=== PATIENT | female | born 1985 | race Caucasian/White ===

== ENCOUNTER 2018-08-24 16:18 | Emergency (ER) | payer OTHER ==
[2018-08-24 17:43] VITALS: BP 119/70; PULSE 51; RESP 18; TEMP 98.3
[2018-08-24] MEDS ORDERED: KETOROLAC 30 MG/ML 1 ML VIAL IM STA (18:46)
[2018-08-24] MEDS ORDERED: AMOXIC-POT CLAV 875-125MG 1 EACH TAB PO STA (18:46)
--- NOTE | 2018-08-24 18:55 | ED ---
ENT HPI - General Chief complaint: Dental/Oral Stated complaint: facial swelling Source: patient Mode of arrival: ambulatory Limitations: no limitations - History of Present Illness Initial comments: 33-year-old female with dental pain in tooth #1 and 16. No nausea, vomiting, fever. No discharge . Minimal swelling. Patient given dental referral. - Related Data Previous Rx's Medication Instructions Recorded Acetaminophen-Codeine 300-30mg 1 tab PO Q4H PRN #12 tablet 08/24/18 [Tylenol #3] Amoxicillin/Potassium Clav 1 tab PO Q12HR #20 tab 08/24/18 [Augmentin 875-125 Tablet] Allergies Allergy/AdvReac Type Severity Reaction Status Date / Time No Known Allergies Allergy Verified 08/24/18 17:43 Review of Systems ROS Statement: Those systems with pertinent positive or pertinent negative responses have been documented in the HPI. ROS Other: All systems not noted in ROS Statement are negative. Past Medical History Additional Past Medical History / Comment(s): "blood infection" History of Any Multi-Drug Resistant Organisms: None Reported Past Surgical History: Section Past Psychological History: No Psychological Hx Reported Smoking Status: Current every day smoker Past Alcohol Use History: Occasional Past Drug Use History: Marijuana General Exam Limitations: no limitations Course Vital Signs 08/24/18 17:40 Temperature 98.3 F Pulse Rate 51 L Respiratory 18 Rate Blood Pressure 119/70 O2 Sat by Pulse 98 Oximetry Disposition Clinical Impression: Pain, dental Disposition: HOME SELF-CARE Condition: Stable Instructions (If sedation given, give patient instructions): Toothache (ED) Additional Instructions: Please take prescribed medication as directed. Please follow with a dentist. Return to emergency department if symptoms worsen. Prescriptions: Amoxicillin/Potassium Clav [Augmentin 875-125 Tablet] 1 tab PO Q12HR #20 tab Acetaminophen-Codeine 300-30mg [Tylenol #3] 1 tab PO Q4H PRN #12 tablet PRN Reason: pain Is patient prescribed a controlled substance at d/c from ED?: Yes If prescribed controlled substance>3 days was MAPS reviewed?: Prescribed <3 Days Referrals: None,Stated [Primary Care Provider] - 1-2 days Time of Disposition: 18:49
== END 2018-08-24 19:19 | disposition home or self-care (01) ==
LOC: EC 16:18
DX: K08.89 Other specified disorders of teeth and supporting structures (principal); F17.200 Nicotine dependence, unspecified, uncomplicated
CPT/HCPCS: 99283; 96372; J1885

== ENCOUNTER 2018-10-21 13:40 | Observation (INO) | payer OTHER ==
[2018-10-21] MEDS ORDERED: SODIUM CHLORIDE 0.9% 1,000 ML IV STA (14:51)
[2018-10-21 15:14] LABS: Appearance,Urine Clear (Clear); Bilirubin,Urine Negative (Negative); Blood,Urine Negative (Negative); Color,Urine Light Yellow; Glucose,Urine (UA) Negative (Negative); Ketones,Urine Negative (Negative); Leukocyte Esterase,Urine Negative (Negative); Nitrite,Urine Negative (Negative); Protein,Urine Negative (Negative); Specific Gravity,Urine 1.009 (1.001-1.035); Urobilinogen,Urine <2.0 mg/dL (<2.0)
[2018-10-21 15:24] LABS: Basophils # (A) 0.1 k/uL (0-0.2); Basophils % (A) 1 %; Eosinophils # (A) 0.6 k/uL (0-0.7); Eosinophils % (A) 5 %; HCT 42.3 % (34.0-46.0); HGB 14.1 gm/dL (11.4-16.0); Lymphocytes # (A) 3.6 k/uL (1.0-4.8); Lymphocytes % (A) 26 %; MCH 30.4 pg (25.0-35.0); MCHC 33.2 g/dL (31.0-37.0); MCV 91.5 fL (80.0-100.0); Mean Platelet Volume 7.4; Monocytes # (A) 0.5 k/uL (0-1.0); Monocytes % (A) 3 %; Neutrophils % (A) 65 %; Platelet Count 248 k/uL (150-450); RBC 4.62 m/uL (3.80-5.40); RDW 15.5 % (11.5-15.5)
[2018-10-21 15:33] LABS: ALT 19 U/L (9-52); AST 19 U/L (14-36); African American GFR (CKD) >90 (>60 ml/min/1.73 sqM); Albumin 4.2 g/dL (3.5-5.0); Alkaline Phosphatase 33 U/L (38-126); Anion Gap 7 mmol/L; Blood Urea Nitrogen 15 mg/dL (7-17); Calcium 9.2 mg/dL (8.4-10.2); Carbon Dioxide 24 mmol/L (22-30); Chloride 106 mmol/L (98-107); Glucose 104 mg/dL (74-99); Potassium 3.9 mmol/L (3.5-5.1); Sodium 137 mmol/L (137-145); Total Bilirubin 0.3 mg/dL (0.2-1.3); Total Protein 6.6 g/dL (6.3-8.2)
[2018-10-21 15:36] LABS: INR 0.9 (<1.2)
--- NOTE | 2018-10-21 15:40 | XR ---
EXAMINATION TYPE: XR chest 2V DATE OF EXAM: 10/21/2018 COMPARISON: NONE HISTORY: Chest pain and dizziness TECHNIQUE: Frontal and lateral views of the chest are obtained. FINDINGS: There is no focal air space opacity, pleural effusion, or pneumothorax seen. The cardiac silhouette size is within normal limits. The osseous structures are intact. There are overlying car diac leads. IMPRESSION: No acute cardiopulmonary process.
--- NOTE | 2018-10-21 16:03 | ED ---
General Adult HPI <Kurtis Artis - Last Filed: 10/21/18 16:22> - General Source: patient, RN notes reviewed Mode of arrival: wheelchair Limitations: no limitations <David Licea - Last Filed: 10/21/18 16:40> - General Chief complaint: Dizziness Stated complaint: Chest tightness & low heart rate Time Seen by Provider: 10/21/18 14:42 - History of Present Illness Initial comments: 33-year-old female with a past medical history of bradycardia, septicemia presents to the emergency department for a chief complaint of a headedness and chest pressure. Patient states that she was originally diagnosed with bradycardia in july in [place]. Patient states that she was supposed to have a pacemaker implanted but she could not do this because of insurance problems. States she moved here about a month ago and has been asymptomatic since that time. States that 2 days ago she started to have chest pressure and lightheadedness on and off. States that she checked her pulse today and it was 39. Patient has no other complaints at this time including shortness of breath, chest pain, abdominal pain, nausea or vomiting, headache, or visual changes. (David Licea) - Related Data Home Medications Medication Instructions Recorded Confirmed No Known Home Medications 10/21/18 10/21/18 Allergies Allergy/AdvReac Type Severity Reaction Status Date / Time morphine AdvReac Nausea & Verified 10/21/18 16:38 Vomiting Review of Systems ROS Other: All systems not noted in ROS Statement are negative. <Kurtis Artis - Last Filed: 10/21/18 16:22> ROS Other: All systems not noted in ROS Statement are negative. <David Licea - Last Filed: 10/21/18 16:40> ROS Statement: Those systems with pertinent positive or pertinent negative responses have been documented in the HPI. Past Medical History Additional Past Medical History / Comment(s): "blood infection", bradycardia History of Any Multi-Drug Resistant Organisms: None Reported Past Surgical History: Section Past Psychological History: No Psychological Hx Reported Smoking Status: Current every day smoker Past Alcohol Use History: Occasional Past Drug Use History: Marijuana <David Licea - Last Filed: 10/21/18 16:40> General Exam Limitations: no limitations General appearance: alert, in no apparent distress Head exam: Present: atraumatic, normocephalic, normal inspection Eye exam: Present: normal appearance, PERRL, EOMI. Absent: scleral icterus, conjunctival injection, periorbital swelling ENT exam: Present: normal exam, mucous membranes moist Neck exam: Present: normal inspection, full ROM. Absent: tenderness, meningismus, lymphadenopathy Respiratory exam: Present: normal lung sounds bilaterally. Absent: respiratory distress, wheezes, rales, rhonchi, stridor Cardiovascular Exam: Present: regular rate, normal rhythm, normal heart sounds. Absent: systolic murmur, diastolic murmur, rubs, gallop, clicks GI/Abdominal exam: Present: soft, normal bowel sounds. Absent: distended, tenderness, guarding, rebound, rigid Neurological exam: Present: alert, oriented X3, CN II-XII intact Psychiatric exam: Present: normal affect, normal mood <David Licea P - Last Filed: 10/21/18 16:40> Course Vital Signs 10/21/18 10/21/18 10/21/18 13:43 14:32 15:23 Temperature 97.5 F L Pulse Rate 55 L 49 L 46 L Respiratory 16 16 Rate Blood Pressure 127/72 111/85 O2 Sat by Pulse 98 99 Oximetry EKG Findings - EKG Comments: EKG Findings:: Sinus bradycardia, ventricular rate 44, DE interval 152, QTC 395 <David Licea P - Last Filed: 10/21/18 16:40> Medical Decision Making - Lab Data Result diagrams: 10/21/18 15:10 10/21/18 15:10 <Kurtis Artis - Last Filed: 10/21/18 16:22> - Lab Data Result diagrams: 10/21/18 15:10 10/21/18 15:10 <David Licea - Last Filed: 10/21/18 16:40> - Medical Decision Making Chart reviewed. Case was discussed with practitioner David. Case also discussed with Dr. Rice SP, who will admit covering for Dr. Arechiga. Cardiology will be consulted. (Kurtis Artis) 33-year-old female with a past medical history bradycardia, septicemia presents for a chief complaint of lightheadedness and chest pressure. Patient was diagnosed with bradycardia in July and . She was supposed to have a pacemaker implanted but was unable to do so. States that for the past 2 days she has had chest pressure and shortness of breath. States that she had a heart rate of 39 today when she checked her pulse. Patient presents with a ventricular rate of 44 on EKG. She has generally been in the low 40s when I review the threat monitoring analyst which was ordered to detect any dysrhythmias. CBC does show a mild leukocytosis, likely reactive in nature. CMP is unremarkable. Urine negative. Chest x-ray shows no acute cardiopulmonary process. Dr. Artis discussed this case with Dr. Rice who answered the call for Dr. Arechiga. Patient will be admitted to Dr. Arechiga with cardiology consultation. (David Licea) - Lab Data Lab Results 10/21/18 10/21/18 10/21/18 Range/Units 15:02 15:10 15:10 WBC 14.0 H (3.8-10.6) k/uL RBC 4.62 (3.80-5.40) m/uL Hgb 14.1 (11.4-16.0) gm/dL Hct 42.3 (34.0-46.0) % MCV 91.5 (80.0-100.0) fL MCH 30.4 (25.0-35.0) pg MCHC 33.2 (31.0-37.0) g/dL RDW 15.5 (11.5-15.5) % Plt Count 248 (150-450) k/uL Neutrophils % 65 % Lymphocytes % 26 % Monocytes % 3 % Eosinophils % 5 % Basophils % 1 % Neutrophils # 9.0 H (1.3-7.7) k/uL Lymphocytes # 3.6 (1.0-4.8) k/uL Monocytes # 0.5 (0-1.0) k/uL Eosinophils # 0.6 (0-0.7) k/uL Basophils # 0.1 (0-0.2) k/uL PT (9.0-12.0) sec INR (<1.2) Sodium 137 (137-145) mmol/L Potassium 3.9 (3.5-5.1) mmol/L Chloride 106 (98-107) mmol/L Carbon Dioxide 24 (22-30) mmol/L Anion Gap 7 mmol/L BUN 15 (7-17) mg/dL Creatinine 0.62 (0.52-1.04) mg/dL Est GFR (CKD-EPI)AfAm >90 (>60 ml/min/1.73 sqM) Est GFR (CKD-EPI)NonAf >90 (>60 ml/min/1.73 sqM) Glucose 104 H (74-99) mg/dL Calcium 9.2 (8.4-10.2) mg/dL Total Bilirubin 0.3 (0.2-1.3) mg/dL AST 19 (14-36) U/L ALT 19 (9-52) U/L Alkaline Phosphatase 33 L (38-126) U/L Troponin I (0.000-0.034) ng/mL Total Protein 6.6 (6.3-8.2) g/dL Albumin 4.2 (3.5-5.0) g/dL Urine Color Light Yellow Urine Appearance Clear (Clear) Urine pH 6.0 (5.0-8.0) Ur Specific [place] 1.009 (1.001-1.035) Urine Protein Negative (Negative) Urine Glucose (UA) Negative (Negative) Urine Ketones Negative (Negative) Urine Blood Negative (Negative) Urine Nitrite Negative (Negative) Urine Bilirubin Negative (Negative) Urine Urobilinogen <2.0 (<2.0) mg/dL Ur Leukocyte Esterase Negative (Negative) 10/21/18 10/21/18 Range/Units 15:10 15:10 WBC (3.8-10.6) k/uL RBC (3.80-5.40) m/uL Hgb (11.4-16.0) gm/dL Hct (34.0-46.0) % MCV (80.0-100.0) fL MCH (25.0-35.0) pg MCHC (31.0-37.0) g/dL RDW (11.5-15.5) % Plt Count (150-450) k/uL Neutrophils % % Lymphocytes % % Monocytes % % Eosinophils % % Basophils % % Neutrophils # (1.3-7.7) k/uL Lymphocytes # (1.0-4.8) k/uL Monocytes # (0-1.0) k/uL Eosinophils # (0-0.7) k/uL Basophils # (0-0.2) k/uL PT 10.0 (9.0-12.0) sec INR 0.9 (<1.2) Sodium (137-145) mmol/L Potassium (3.5-5.1) mmol/L Chloride (98-107) mmol/L Carbon Dioxide (22-30) mmol/L Anion Gap mmol/L BUN (7-17) mg/dL Creatinine (0.52-1.04) mg/dL Est GFR (CKD-EPI)AfAm (>60 ml/min/1.73 sqM) Est GFR (CKD-EPI)NonAf (>60 ml/min/1.73 sqM) Glucose (74-99) mg/dL Calcium (8.4-10.2) mg/dL Total Bilirubin (0.2-1.3) mg/dL AST (14-36) U/L ALT (9-52) U/L Alkaline Phosphatase (38-126) U/L Troponin I <0.012 (0.000-0.034) ng/mL Total Protein (6.3-8.2) g/dL Albumin (3.5-5.0) g/dL Urine Color Urine Appearance (Clear) Urine pH (5.0-8.0) Ur Specific [place] (1.001-1.035) Urine Protein (Negative) Urine Glucose (UA) (Negative) Urine Ketones (Negative) Urine Blood (Negative) Urine Nitrite (Negative) Urine Bilirubin (Negative) Urine Urobilinogen (<2.0) mg/dL Ur Leukocyte Esterase (Negative) Disposition <Kurtis Artis - Last Filed: 10/21/18 16:22> Is patient prescribed a controlled substance at d/c from ED?: No Time of Disposition: 16:40 <David Licea - Last Filed: 10/21/18 16:40> Clinical Impression: Bradycardia, Chest pressure Disposition: ADMITTED IP TO THIS HOSP Condition: Fair Referrals: Hermelindo Arechiga MD [Primary Care Provider] - 1-2 days
[2018-10-21 17:59] VITALS: BMI 23.0
[2018-10-21] MEDS: valACYclovir 500 MG TAB PO SCH (18:37)
[2018-10-21] MEDS: HEPARIN SODIUM,PORCINE 5,000 UNIT/ML 1 ML VIAL SQ SCH (21:19)
--- NOTE | 2018-10-21 21:36 | HP ---
HISTORY AND PHYSICAL DATE OF SERVICE: 10/21/2018 HISTORY OF PRESENT ILLNESS: Patient is a 33-year-old female with a history of bacteremia after having a severe tooth infection in May of this year in [place]. Evidently, the patient states that the infection entered her bloodstream and affected her heart at which time a pacemaker was found to be necessary. However, patient did not have any insurance at the time and was unable to have the pacemaker placed. The patient was treated on a full course of IV antibiotics for the bacteremia and has since moved to [place]. About a week ago the patient stated that she started to have symptoms of worsening shortness of breath, chest tightness, and dizziness. The patient checked her heart rate and found that it was slow and thought that her blood pressure might be low. The patient's fiancee insisted the patient come to the emergency room for further evaluation and treatment and was found to be bradycardic and has been admitted for a cardiac evaluation. PAST MEDICAL HISTORY: Positive for bacteremia in May of this year resulting in bradycardia. The patient also with a history of depression, bipolar and schizophrenia, but is not on any medications for those or did not provide a list of medications. PAST SURGICAL HISTORY: Significant for a . ALLERGIES: Include MORPHINE which causes nausea and vomiting. Again, medications are not provided. SOCIAL HISTORY: The patient is a smoker and has smoked a pack a day for approximately 20 years. Drinks alcohol only on occasion. Does smoke marijuana weekly to help with the psychiatric symptoms. 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 FAMILY HISTORY: Patient never knew her Father and does not speak to her Mother. Patient talked to her Grandmother since admission and was told that her Mother has valvular heart disease and irregular heart beat. REVIEW OF SYSTEMS: General is negative for any fever or chills. Weight is stable. The patient does verbalize being hungry all the time with good appetite, although has been having diarrhea for over a week. HEENT: Negative for headaches. Positive for dizziness. Denies any acute visual changes. Does have difficulty hearing. Denies any seasonal allergies or rhinitis or nose bleeds. Denies any sore throat or difficulty swallowing. RESPIRATORY: Positive for shortness of breath with cough productive for occasional dark colored sputum. Denies hemoptysis. CARDIOVASCULAR: Positive for chest tightness. GI: Positive for abdominal cramping. No nausea or vomiting. The patient has had liquid yellow diarrhea for approximately a week. : Negative for dysuria or hematuria. Patient does complain of an outbreak of herpes type 2 currently and is not on any medication. ENDOCRINE: Negative for diabetes mellitus or thyroid disease. MUSCULOSKELETAL: Positive for chronic back pain. Patient does have several herniated discs from an injury at a job in [place]. NEURO: Negative for any history of seizures, numbness or tingling in the extremities. PSYCHIATRIC: Positive for depression, bipolar disorder and schizophrenia. PHYSICAL EXAM: GENERAL: A pleasant 33-year-old female who is seen lying in bed, awake, alert. VITAL SIGNS: Temp is 97.5, heart rate 43, respiratory rate 16, blood pressure 109/65, O2 sats 100% on room air. HEENT: Head is normocephalic, atraumatic. Pupils equal, round, react to light. Ears and nose, no discharge is noted. Mouth was moist mucous membranes. No pharyngeal erythema. Neck is supple. Trachea is midline. No lymphadenopathy. LUNGS: Clear. No rales or wheezes. HEART: S1, S2 are heard. Bradycardic, regular. ABDOMEN: Soft. Bowel sounds are heard. EXTREMITIES: With no edema. NEUROLOGIC: Patient is awake and alert. LABS: White count is 14.0, hemoglobin 14.1, hematocrit 42.3 with 248,000 platelets. PT is 10, INR 0.9. Sodium is 137, potassium is 3.9, chloride is 106, CO2 is 24, anion gap is 7, BUN is 15, creatinine 0.62, glucose 104, calcium 9.2, total bilirubin 0.3, AST 19, ALT 19, alkaline phosphatase 33. Troponins less than 0.012. Total protein 6.6, albumin 4.2. Urinalysis negative for leuk esterase or nitrites. IMPRESSION: 1. Symptomatic bradycardia with chest tightness, shortness of breath and dizziness. Consult Cardiology and monitor on telemetry. 2.Leukocytosis. 3. Diarrhea. We will check stool cultures and consult GI and Infectious Disease. 4. Herpes simplex type 2. Add Valtrex 500 mg p.o. daily and consult ID. 5. Nicotine dependence. The patient counseled on quitting smoking and was highly recommended. 6. History of bacteremia. It may be necessary to obtain records from the hospital the patient was admitted to in [place]. Again, Cardiology is on consult. Will add GI and DVT prophylaxis. The patient will be maintained on a regular diet and will follow patient closely, making further changes as necessary. MMODL / IJN: [id number] / HEIDI
[2018-10-22 03:32] LABS: Cholesterol 263 mg/dL (<200); HDL Cholesterol 47 mg/dL (40-60); LDL Cholesterol,Calculated 142 mg/dL (0-99); Triglycerides 372 mg/dL (<150)
[2018-10-22] MEDS ORDERED: PANTOPRAZOLE 40 MG TABLET PO SCH (07:30)
[2018-10-22] MEDS ORDERED: ASPIRIN 325 MG TAB PO SCH (09:00)
[2018-10-22 09:13] VITALS: RESP 16
--- NOTE | 2018-10-22 10:07 | P.CONS ---
History of Present Illness - Reason for Consult Consult date: 10/22/18 Diarrhea Requesting physician: Hermelindo Arechiga - Chief Complaint Shortness of breath - History of Present Illness 33-year-old female with a history of severe tooth infection May 2018 in [place] resulted in bacteremia with subsequent effects on her heart requiring pacemaker however patient's insurance at that time was unable to assist with pacemaker placement. She presents with 1 week shortness of breath chest tightness and nonbloody diarrhea. Patient's heart rate was low on admission 43- 47. Patient thinks she might eaten some greasy chicken prior to the onset of h er diarrhea. Consult requested for diarrhea. White count 14. Hemoglobin 14.1. INR 0.9. BUN 15. Creatinine 0.6. Afebrile. Presently no diarrhea or abdominal pain. Diarrhea stopped yesterday. Denies hematemesis hematochezia or melena. No history of underlying bowel disorders. Review of Systems Constitutional: Denies fever, chills, sweats, weight gain, or loss. HEENT: Negative for migraines, blurred vision or loss, earaches, drainage, tinnitus, oral mucosal lesions, dysphagia, or odynophagia. CARDIAC: Admitted with chest tightness denies, arrhythmias, or palpitation. RESPIRATORY: Admitted with shortness of breath denies hemoptysis, cough, or sputum production. GI: See HPI for pertinent findings. : Negative for hematuria, urgency, frequency, polyuria, or dysuria. GYNc: Denies possibility of . Negative vaginal discharge. MUSCULOSKELETAL: Negative for muscle aches, swelling, arthritis, and arthralgias. NEUROLOGIC: Negative for stroke or TIA. ENDOCRINE: Negative for thyroid problems. SKIN: Negative for rash or itching. PSYCHIATRIC: Negative history for depression and anxiety Past Medical History Additional Past Medical History / Comment(s): "blood infection" from toothache that stated went ot heart, bradycardia History of Any Multi-Drug Resistant Organisms: None Reported Past Surgical History: Section Past Anesthesia/Blood Transfusion Reactions: No Reported Reaction Past Psychological History: ADD/ADHD, Anxiety, Bipolar, Depression, Schizophrenia Smoking Status: Current every day smoker Past Alcohol Use History: Occasional Past Drug Use History: Marijuana - Past Family History Mother Family Medical History: Cancer Additional Family Medical History / Comment(s): stents placed in leg, throat cancer Medications and Allergies Home Medications Medication Instructions Recorded Confirmed Type No Known Home Medications 10/21/18 10/21/18 History Allergies Allergy/AdvReac Type Severity Reaction Status Date / Time morphine AdvReac Nausea & Verified 10/21/18 16:38 Vomiting Physical Exam Vitals: Vital Signs Temp Pulse Pulse Pulse Pulse Pulse Resp 10/22/18 08:00 97.6 F 42 L 60 41 L 16 10/22/18 03:38 98.3 F 44 L 18 10/22/18 00:00 98.3 F 43 L 18 10/21/18 20:00 47 L 10/21/18 19:38 98.2 F 44 L 18 10/21/18 17:43 98.0 F 43 L 16 10/21/18 17:05 54 L 16 10/21/18 15:23 46 L 16 10/21/18 14:32 49 L 10/21/18 13:43 97.5 F L 55 L 16 BP BP BP BP BP Pulse Ox 10/22/18 08:00 120/59 110/75 108/49 99 10/22/18 03:38 123/68 99 10/22/18 00:00 89/45 95 10/21/18 20:00 10/21/18 19:38 97/47 100 10/21/18 17:43 109/65 100 10/21/18 17:05 116/75 99 10/21/18 15:23 111/85 99 10/21/18 14:32 10/21/18 13:43 127/72 98 Intake and Output 10/21/18 10/22/18 10/22/18 22:59 06:59 14:59 Intake Total 240 Balance 240 Intake: Oral 240 Other: Voiding Method Toilet Toilet # Voids 1 General appearance: The patient is alert, oriented, in no acute distress. HET: Head is normocephalic and atraumatic. Pupils are equal and reactive. Oropharynx is clear without lesions. Neck: Supple without lymphadenopathy. Trachea midline. Heart: S1 S2. Regular rate and rhythm. Lungs: No crackles or wheezes are heard. Abdomen: Soft, nontender, nondistended with bowel sounds. No peritoneal signs. No palpable organomegaly or masses. Extremities: Normal skin color and turgor. No cyanosis, rash, ulceration, clubbing, or edema. Radial and pedal pulses are 2/4 bilaterally. Neurological: No focal deficits. Strength and sensation are grossly intact. Results CBC & Chem 7: 10/21/18 15:10 10/21/18 15:10 Labs: Abnormal Lab Results - Last 24 Hours (Table) 10/21/18 10/21/18 10/22/18 Range/Units 15:10 15:10 03:05 WBC 14.0 H (3.8-10.6) k/uL Neutrophils # 9.0 H (1.3-7.7) k/uL Glucose 104 H (74-99) mg/dL Alkaline Phosphatase 33 L (38-126) U/L Triglycerides 372 H (<150) mg/dL Cholesterol 263 H (<200) mg/dL LDL Cholesterol, Calc 142 H (0-99) mg/dL Assessment and Plan (1) Diarrhea Narrative/Plan: 33-year-old female with a history of severe tooth infection May 2018 [facility] resulting in bacteremia and bradycardia with recommendations of pacemaker implantation however insurance issues would not support implantation of pacemaker presents with a symptomatically bradycardic cardia with symptoms of shortness of breath and chest tightness for a week with nonbloody diarrhea. Diarrhea has ceased presently without abdominal pain or abdominal complaints. Possible acute self-limiting infectious gastroenteritis colitis. Current Visit: Yes Status: Acute Code(s): R19.7 - DIARRHEA, UNSPECIFIED SNOMED Code(s): 85223943 (2) Symptomatic bradycardia Current Visit: Yes Status: Acute Code(s): R00.1 - BRADYCARDIA, UNSPECIFIED SNOMED Code(s): 26264780 Plan: 1. Diarrhea has stopped therefore no further recommendations at this time. If patient has recurrence of diarrhea we'll send stool studies including Clostridium difficile testing. Continue with supportive measures. We'll follow on an as-needed basis. Discharge per medicine and store sales consultant staff. Thank you for this kind referral and the opportunity to participate in the care of your patient. This consultation was discussed with Dr. Carrasco. The impression and plan of care have been directed as dictated.
--- NOTE | 2018-10-22 10:41 | P.CRDCN ---
History of Present Illness History of present illness: This is a pleasant 33-year-old female past medical history significant for chronic nicotine dependence, schizophrenia, depression, bipolar, anxiety and ADD. We have been asked to see her in consultation secondary to bradycardia and chest pain. She states for the previous couple of days she has noticed acute onset of shortness of breath at rest associated with a tight squeezing type pain. She states it feels extremity is gripping her underneath her arms and squeezing her chest together into the middle. She also has some intermittent dizziness at times. Not associated with exertion or activity. She recently moved here from [place]. While in [place] in May 2017 she was treated in the hospital for 2-weeks with IV antibiotics for a tooth infection that went septic. She states she was told there was a possibility the infection had spread to her heart and she would need a pacemaker. However, due to lack of insurance this was not done. She is seen and examined resting comfortably in bed in no acute distress. She does have an episode of pleuritic pain when asked to take some deep breaths for my exam. Denies active dizziness. EKG reveals sinus bradycardia heart rate 44. Telemetry tracings this will show consistent sinus bradycardia. Chest x-ray is negative for an acute cardiopulmonary process. Laboratory data reviewed, WBC 14, hemoglobin 14.1, platelets 248, sodium 137, potassium 3.9, creatinine 0.62, cardiac enzymes negative 3, LDL 142, HDL 47, triglycerides 372 and TSH 1.06. She currently takes no daily cardiac medications. At the time of my exam: CONSTITUTIONAL: Denies fever. Denies chills. EYES: Denies blurred vision. Denies vision changes. Denies eye pain. EARS, NOSE, MOUTH & THROAT: Denies headache. Denies sore throat. Denies ear pain. CARDIOVASCULAR: Complains of pleuritic chest pain. Denies shortness of breath. Denies orthopnea. Denies PND. Denies palpitations. RESPIRATORY: Denies cough. GASTROINTESTINAL: Denies abdominal pain. Denies diarrhea. Denies constipation. Denies nausea. Denies vomiting. MUSCULOSKELETAL: Denies myalgias. INTEGUMENTARY: Denies pruitis. Denies rash. NEUROLOGIC: Denies numbness. Denies tingling. Denies weakness. PSYCHIATRIC: Denies anxiety. Denies depression. ENDOCRINE: Denies fatigue. Denies weight change. Denies polydipsia. Denies polyurina. GENITOURINARY: Denies burning, hematuria or urgency with micturation. HEMATOLOGIC: Denies history of anemia. Denies bleeding. Blood pressure 108/49 heart rate between 40 and 60 afebrile maintaining oxygen saturation on room air GENERAL: This is a 33-year-old female in no apparent distress at the time of my examination. HEENT: Head is atraumatic, normocephalic. Pupils are equal, round. Sclerae anicteric. Conjunctivae are clear. Mucous membranes of the mouth are moist. Neck is supple. There is no jugular venous distention. No carotid bruit is heard. LUNGS: Clear to auscultation no wheezes, rales or rhonchi. Mild pleuritic chest pain with deep inspiration No chest wall tenderness is noted on palpation or with deep breathing. HEART: Regular rate and rhythm without murmurs, rubs or gallops. S1 and S2 heard. ABDOMEN: Soft, nontender. Bowel sounds are heard. No organomegaly noted. EXTREMITIES: No evidence of peripheral edema and no calf tenderness noted. VASCULAR: Radial and dorsalis pedis pulses palpated, no evidence of clubbing. NEUROLOGIC: Patient is awake, alert and oriented x3. ASSESSMENT Pleuritic chest pain with shortness of breath, atypical for angina. An acute coronary event has been ruled out. Asymptomatic sinus bradycardia Leukocytosis Chronic nicotine dependence PLAN An acute coronary event has been ruled out. Check d-dimer. Orthostatic vital signs requested and reviewed, no evidence of orthostatic hypotension. Obtain records from admission in May from [facility]. Obtain 2D echocardiogram and doppler study to assess cardiac structure and function. Perform stress echocardiogram to assess for stress induced ischemia. Thank you kindly for this consultation. Nurse Practitioner note has been reviewed, I agree with a documented findings and plan of care. Patient was seen and examined. Past Medical History Additional Past Medical History / Comment(s): "blood infection" from toothache that stated went ot heart, bradycardia History of Any Multi-Drug Resistant Organisms: None Reported Past Surgical History: Section Past Anesthesia/Blood Transfusion Reactions: No Reported Reaction Past Psychological History: ADD/ADHD, Anxiety, Bipolar, Depression, Schizophrenia Smoking Status: Current every day smoker Past Alcohol Use History: Occasional Past Drug Use History: Marijuana - Past Family History Mother Family Medical History: Cancer Additional Family Medical History / Comment(s): stents placed in leg, throat cancer Medications and Allergies Home Medications Medication Instructions Recorded Confirmed Type No Known Home Medications 10/21/18 10/21/18 History Allergies Allergy/AdvReac Type Severity Reaction Status Date / Time morphine AdvReac Nausea & Verified 10/21/18 16:38 Vomiting Physical Exam Vitals: Vital Signs Temp Pulse Pulse Resp BP BP Pulse Ox 10/22/18 03:38 98.3 F 44 L 18 123/68 99 10/22/18 00:00 98.3 F 43 L 18 89/45 95 10/21/18 20:00 47 L 10/21/18 19:38 98.2 F 44 L 18 97/47 100 10/21/18 17:43 98.0 F 43 L 16 109/65 100 10/21/18 17:05 54 L 16 116/75 99 10/21/18 15:23 46 L 16 111/85 99 10/21/18 14:32 49 L 10/21/18 13:43 97.5 F L 55 L 16 127/72 98 Intake and Output 10/21/18 10/22/18 10/22/18 22:59 06:59 14:59 Intake Total 240 Balance 240 Intake: Oral 240 Other: Voiding Method Toilet # Voids 1 Results 10/21/18 15:10 10/21/18 15:10 Cardiac Enzymes 10/21/18 10/21/18 10/21/18 Range/Units 15:10 15:10 21:01 AST 19 (14-36) U/L Troponin I <0.012 <0.012 (0.000-0.034) ng/mL 10/22/18 Range/Units 03:05 AST (14-36) U/L Troponin I <0.012 (0.000-0.034) ng/mL Coagulation 10/21/18 Range/Units 15:10 PT 10.0 (9.0-12.0) sec Lipids 10/22/18 Range/Units 03:05 Triglycerides 372 H (<150) mg/dL Cholesterol 263 H (<200) mg/dL HDL Cholesterol 47 (40-60) mg/dL CBC 10/21/18 Range/Units 15:10 WBC 14.0 H (3.8-10.6) k/uL RBC 4.62 (3.80-5.40) m/uL Hgb 14.1 (11.4-16.0) gm/dL Hct 42.3 (34.0-46.0) % Plt Count 248 (150-450) k/uL Comprehensive Metabolic Panel 10/21/18 Range/Units 15:10 Sodium 137 (137-145) mmol/L Potassium 3.9 (3.5-5.1) mmol/L Chloride 106 (98-107) mmol/L Carbon Dioxide 24 (22-30) mmol/L BUN 15 (7-17) mg/dL Creatinine 0.62 (0.52-1.04) mg/dL Glucose 104 H (74-99) mg/dL Calcium 9.2 (8.4-10.2) mg/dL AST 19 (14-36) U/L ALT 19 (9-52) U/L Alkaline Phosphatase 33 L (38-126) U/L Total Protein 6.6 (6.3-8.2) g/dL Albumin 4.2 (3.5-5.0) g/dL Current Medications Generic Name Dose Route Start Last Admin Trade Name Freq PRN Reason Stop Dose Admin Aspirin 325 mg 10/22/18 09:00 Aspirin PO DAILY [facility] Heparin Sodium (Porcine) 5,000 unit 10/21/18 21:00 10/21/18 21:19 Heparin SQ 5,000 unit Q12HR CHRISTOPHER Administration Pantoprazole Sodium 40 mg 10/22/18 07:30 Protonix PO AC-BRKFST [facility] Valacyclovir HCl 500 mg 10/21/18 17:45 10/21/18 18:37 Valtrex PO 500 mg DAILY CHRISTOPHER Administration Intake and Output 10/21/18 10/22/18 10/22/18 22:59 06:59 14:59 Intake Total 240 Balance 240 Intake: Oral 240 Other: Voiding Method Toilet # Voids 1 10/21/18 15:10 10/21/18 15:10
--- NOTE | 2018-10-22 11:58 | ECHOF ---
Referral Reason:sob, MEASUREMENTS -------- HEIGHT: 152.4 cm WEIGHT: 53.5 kg BP: 123/68 RVIDd: 2.2 cm (< 3.3) IVSd: 1.0 cm (0.6 - 1.1) LVIDd: 4.3 cm (3.9 - 5.3) LVPWd: 0.9 cm (0.6 - 1.1) IVSs: 1.4 cm LVIDs: 2.8 cm LVPWs: 1.2 cm LA Diam: 2.8 cm (2.7 - 3.8) LAESV Index (A-L): 25.12 ml/m Ao Diam: 2.9 cm (2.0 - 3.7) AV Cusp: 2.2 cm (1.5 - 2.6) MV EXCURSION: 17.484 mm (> 18.000) MV EF SLOPE: 124 mm/s (70 - 150) EPSS: 0.5 cm MV E Jeremias: 1.14 m/s MV DecT: 284 ms MV A Jeremias: 0.79 m/s MV E/A Ratio: 1.45 FINDINGS -------- Resting bradycardia (HR<60bpm). This was a technically good study. The left ventricular size is normal. Left ventricular wall thickness is normal. Overall left vent ricular systolic function is normal with, an EF between 60 - 65 %. The right ventricle is normal in size. Normal LA size by volume 22+/-6 ml/m2. The right atrium is normal in size. Interatrial and interventricular septum intact. The aortic valve is trileaflet and appears structurally normal. Trace amount of aortic regurgitatio n. There is trace mitral regurgitation. The tricuspid valve appears structurally normal. Trace/mild (physiologic) pulmonic regurgitation. The aortic root size is normal. Normal inferior vena cava with normal inspiratory collapse consistent with estimated right atrial pre ssure of 5 mmHg. There is no pericardial effusion. CONCLUSIONS -------- 1. Resting bradycardia (HR<60bpm). 2. This was a technically good study. 3. The left ventricular size is normal. 4. Left ventricular wall thickness is normal. 5. Overall left ventricular systolic function is normal with, an EF between 60 - 65 %. 6. The right ventricle is normal in size. 7. Normal LA size by volume 22+/-6 ml/m2. 8. The right atrium is normal in size. 9. Interatrial and interventricular septum intact. 10. The aortic valve is trileaflet and appears structurally normal. 11. Trace amount of aortic regurgitation. 12. There is trace mitral regurgitation. 13. The tricuspid valve appears structurally normal. 14. Trace/mild (physiologic) pulmonic regurgitation. 15. The aortic root size is normal. 16. Normal inferior vena cava with normal inspiratory collapse consistent with estimated right atrial pressure of 5 mmHg. 17. There is no pericardial effusion. [employer]: Verna Summers RDCS
[2018-10-22] MEDS: valACYclovir 500 MG TAB PO SCH (12:00)
[2018-10-22] MEDS: HEPARIN SODIUM,PORCINE 5,000 UNIT/ML 1 ML VIAL SQ SCH (12:01)
[2018-10-22 12:16] VITALS: BP 103/44; PULSE 62; TEMP 97.7
[2018-10-22 12:40] LABS: Basophils # (A) 0.1 k/uL (0-0.2); Basophils % (A) 0 %; Eosinophils # (A) 0.7 k/uL (0-0.7); Eosinophils % (A) 6 %; HCT 42.9 % (34.0-46.0); HGB 13.6 gm/dL (11.4-16.0); Lymphocytes # (A) 4.2 k/uL (1.0-4.8); Lymphocytes % (A) 38 %; MCH 29.8 pg (25.0-35.0); MCHC 31.7 g/dL (31.0-37.0); Mean Platelet Volume 8.3; Monocytes # (A) 0.5 k/uL (0-1.0); Monocytes % (A) 4 %; Neutrophils # (A) 5.7 k/uL (1.3-7.7); Neutrophils % (A) 51 %; Platelet Count 219 k/uL (150-450); RBC 4.57 m/uL (3.80-5.40); WBC 11.2 k/uL (3.8-10.6)
--- NOTE | 2018-10-22 13:01 | PN ---
PROGRESS NOTE DATE OF SERVICE: 10/22/2018 Patient is a 33-year-old female who is seen in the IOP unit, lying in bed, awake, alert, is not complaining of worsening shortness of breath or pain. Does state that she saw the editor at large this morning and she was laid flat in bed with the head of the bed down and did feel some chest tightness. Further workup is ongoing. Patient is hemodynamically stable, afebrile. Patient denies any further loose stools since admission. Patient is in no acute distress. PHYSICAL EXAM: VITAL SIGNS: Temperature 97.7, heart rate is 41-62, respiratory rate is 16, blood pressure is 103/44, O2 sats 98% on room air. HEENT. Head is normocephalic, atraumatic. Neck is supple. Trachea is midline. LUNGS: Clear. No rales or wheezes. Slightly diminished heart, S1, S2 are heard. Not tachycardic. ABDOMEN: Soft. Bowel sounds are heard. EXTREMITIES: With no edema. NEUROLOGIC: Patient is awake, x]]]]]alert, oriented. LABS: No new labs to review. We will repeat a CBC this morning. No new imaging to review. Echocardiogram shows resting bradycardia. Technically good study. Left ventricular size is normal. Left ventricular wall thickness is normal. Overall left ventricular systolic function is normal with an EF between 60% and 65%. IMPRESSION: 1. At this time, bradycardia. 2. Leukocytosis. 3. Diarrhea, which patient states has resolved. 4. Herpes simplex type 2. 5. Nicotine dependence. 6. History of bacteremia. PLAN: Continue current medications which have been reviewed. Continue GI and DVT prophylaxis. Continue Cardiology recommendations. ID is on consult as well and GI consult. Stool studies will be obtained if the patient has any further loose stools. MMODL / IJN: [id number] /
--- NOTE | 2018-10-22 14:37 | PN ---
PROGRESS NOTE ADDENDUM: Progress note this date will be a discharge summary. We are covering for Dr. Hermelindo Arechiga. INTERVAL HISTORY: The patient came in with symptoms of worsening shortness of breath, chest tightness and dizziness. In fact, her heart rate was found to be bradycardic. She came to the emergency room and was admitted into observation for further evaluation and treatment. The patient also complaining of watery yellow loose stools x1 week prior to being admitted to the hospital for which GI consult was initiated. However, patient's loose stools have resolved since admission. Patient also complained of outbreak of herpes type 2 and was started on antiviral medication with consult to I.D. The patient underwent a cardiac stress test today and was found to have an adequate response with the heart rate during the test. Subsequently, Cardiology has cleared the patient for discharge home. Please see today's progress note previously dictated for the physical exam and final diagnosis. The patient will discharged home on no specific medications unless Infectious Disease order something prior to discharge and patient will follow up with Dr. Hermelindo Arechiga early next week in the office. The patient's condition at time of discharge is stable. MMODL / IJN: [id number] / MTDD
--- NOTE | 2018-10-22 16:16 | P.CONS ---
History of Present Illness - Reason for Consult Consult date: 10/22/18 Diarrhea and genital herpes Requesting physician: Hermelindo Arechiga - Chief Complaint Diarrhea 1 week and genital lesions - History of Present Illness Patient is a 33-year-old female who was diagnosed with the HSV-2 on the basis of for blood draw done out of the state last year patient says do not have any genital lesion at that time, the patient is now presenting to [facility] ER with chief complaints of diarrhea part 1 week with in the ramus number of loose stools no blood or mucus in the stools, the patient did have some mild crampy lower abdominal pain, some nausea but no vomiting the patient also complaining of headache and chest pressure patient has been admitted to the observation unit patient subsequently also complained of having genital eruptions which are painful and apparently has been coming off and on for the last 2-3 weeks and seek medical treatment from the admitting physician patient was started on valacyclovir and infectious disease was consulted for further recommendation regarding her diarrhea and HSV-2 Review of Systems Positive point has been mentioned in the HPI rest of the systems are negative Past Medical History Additional Past Medical History / Comment(s): "blood infection" from toothache that stated went ot heart, bradycardia History of Any Multi-Drug Resistant Organisms: None Reported Past Surgical History: Section Past Anesthesia/Blood Transfusion Reactions: No Reported Reaction Past Psychological History: ADD/ADHD, Anxiety, Bipolar, Depression, Schizophrenia Smoking Status: Current every day smoker Past Alcohol Use History: Occasional Past Drug Use History: Marijuana - Past Family History Mother Family Medical History: Cancer Additional Family Medical History / Comment(s): stents placed in leg, throat cancer Medications and Allergies Home Medications Medication Instructions Recorded Confirmed Type No Known Home Medications 10/21/18 10/21/18 History Allergies Allergy/AdvReac Type Severity Reaction Status Date / Time morphine AdvReac Nausea & Verified 10/21/18 16:38 Vomiting Physical Exam Vitals: Vital Signs Temp Pulse Pulse Pulse Pulse Pulse Pulse 10/22/18 12:00 97.7 F 62 10/22/18 11:57 42 L 60 41 L 10/22/18 08:00 97.6 F 42 L 60 41 L 10/22/18 03:38 98.3 F 44 L 10/22/18 00:00 98.3 F 43 L 10/21/18 20:00 47 L 10/21/18 19:38 98.2 F 44 L 10/21/18 17:43 98.0 F 43 L 10/21/18 17:05 54 L 10/21/18 15:23 46 L 10/21/18 14:32 49 L 10/21/18 13:43 97.5 F L 55 L Resp BP BP BP BP BP Pulse Ox 10/22/18 12:00 16 103/44 98 10/22/18 11:57 16 10/22/18 08:00 16 120/59 110/75 108/49 99 10/22/18 03:38 18 123/68 99 10/22/18 00:00 18 89/45 95 10/21/18 20:00 10/21/18 19:38 18 97/47 100 10/21/18 17:43 16 109/65 100 10/21/18 17:05 16 116/75 99 10/21/18 15:23 16 111/85 99 10/21/18 14:32 10/21/18 13:43 16 127/72 98 Intake and Output 10/21/18 10/22/18 10/22/18 22:59 06:59 14:59 Intake Total 240 Balance 240 Intake: Oral 240 Other: Voiding Method Toilet Toilet # Voids 1 Weight 53.524 kg GENERAL DESCRIPTION: Middle-aged female lying in bed, no distress. No tachypnea or accessory muscle of respiration use. HEENT: Shows Pallor , no scleral icterus. Oral mucous membrane is dry. No pharyngeal erythema or thrush NECK: Trachea central, no thyromegaly. LUNGS: Unlabored breathing. Clear to auscultation anteriorly. No wheeze or crackle. HEART: S1, S2, regular rate and rhythm. No loud murmur ABDOMEN: Soft, no tenderness , guarding or rigidity, no organomegaly EXTREMITIES: No edema of feet. SKIN: No rash, no masses palpable. NEUROLOGICAL: The patient is awake, alert, oriented x3, mood and affect normal. Results CBC & Chem 7: 10/22/18 03:05 10/21/18 15:10 Labs: Abnormal Lab Results - Last 24 Hours (Table) 10/21/18 10/21/18 10/22/18 Range/Units 15:10 15:10 03:05 WBC 14.0 H (3.8-10.6) k/uL Neutrophils # 9.0 H (1.3-7.7) k/uL Glucose 104 H (74-99) mg/dL Alkaline Phosphatase 33 L (38-126) U/L Triglycerides 372 H (<150) mg/dL Cholesterol 263 H (<200) mg/dL LDL Cholesterol, Calc 142 H (0-99) mg/dL Assessment and Plan Assessment: 1-Patient presented to hospital with acute diarrhea with going on for about a week watery subsequently had resolution of the same possible viral gastritis that has on his course 2-patient with painful genital lesion likely HSV 2 in this patient has been diagnosed with HSV 2 infection on a blood draw about a year ago Plan: 1-patient will be advised valtrex 500 mg by mouth every 12 hours 3 days 2-it the patient has frequent recurrences she will be given a suppressive dose of 1 g daily for the patient has been advised to follow-up in the office We will follow on clinical condition and cultures to further adjust medication if needed Thank you for this consultation will follow this patient with you Time with Patient: Greater than 30
--- NOTE | 2018-10-27 08:17 | ECHOS ---
STRESS ECHOCARDIOGRAM INDICATIONS: Chest pain/shortness of breath BASELINE HEART RATE: 57 BASELINE BLOOD PRESSURE: 135/60 MAXIMUM HEART RATE: 163 MAXIMUM BLOOD PRESSURE: 148/61 85% MPHR: 161 100% MPHR: 189 METS: 11.7 MAXIMUM STAGE REACHED: 4 TOTAL EXERCISE TIME: 10:00 CLINICAL INFORMATION: Baseline EKG revealed normal sinus rhythm with poor R-wave progression over precordial leads. Patient walked on standard Bienvenido protocol for 10 minutes, achieved a maximal heart rate of 163 beats per minute which is 85% of predicted maximal. She developed fatigue and shortness of breath but did not have any angina or arrhythmia. EKG did not reveal any ST-segment changes to indicate ischemia. There was no arrhythmia. By EKG criteria, this is a negative stress test with excellent exercise capacity. Baseline echo images revealed normal wall motion and wall thickening of all segments. At peak exercise there was good augmentation of left ventricular wall motion and wall thickening of all segments suggesting that there is no evidence of stress-induced ischemia on this study. The images were not correctly transferred and therefore I looked at all the raw images to make the determination. There was some technical glitch with the image transfer. However, I reviewed all the raw images and there is no evidence to suggest ischemia on this study. IMPRESSION: 1. Excellent exercise capacity with a negative stress test by EKG criteria. 2. Normal stress echocardiogram without evidence of ischemia. MMODL / IJN: [id number] /
== END 2018-10-22 14:20 | disposition home or self-care (01) ==
LOC: EC 13:40 → 1SOBS 16:22 → UNDODISOB 10-22 14:07
PROVIDERS: ADMIT Family Medicine; ATTEND Family Medicine
DX: R00.1 Bradycardia, unspecified (principal); R07.89 Other chest pain; R06.02 Shortness of breath; R42 Dizziness and giddiness; R07.81 Pleurodynia; D72.829 Elevated white blood cell count, unspecified; R19.7 Diarrhea, unspecified; B00.9 Herpesviral infection, unspecified; A60.00 Herpesviral infection of urogenital system, unspecified; Z86.19 Personal history of other infectious and parasitic diseases; F17.210 Nicotine dependence, cigarettes, uncomplicated; F20.9 Schizophrenia, unspecified; Z88.5 Allergy status to narcotic agent; Z95.828 Presence of other vascular implants and grafts; Z87.828 Personal history of other (healed) physical injury and trauma; Z80.8 Family history of malignant neoplasm of other organs or systems; Z82.49 Family history of ischemic heart disease and other diseases of the circulatory system
CPT/HCPCS: 96372 ×2; 36415; 93005; 93306; 93351; 85379; 80061; 80053; 84443; 84484 ×2; 85025 ×2; 85610; 81003; 71046; G0378 ×2; J1644 ×2

== ENCOUNTER 2019-02-28 13:50 | Emergency (ER) | payer OTHER ==
[2019-02-28 14:02] VITALS: TEMP 97.8
[2019-02-28 14:53] LABS: Amphetamine Screen,Urine Not Detected (NotDetected); Barbiturate Screen,Urine Not Detected (NotDetected); Benzodiazepines Screen,Urine Detected (NotDetected); Cocaine Screen,Urine Not Detected (NotDetected); Methadone Screen, Urine Not Detected (NotDetected); Opiate Screen,Urine Not Detected (NotDetected); Oxycodone Screen, Urine Not Detected (NotDetected); Phencyclidine Screen,Urine Not Detected (NotDetected); Tricyclic Antidepressant,Urine Not Detected (NotDetected); Urn Cannabinoid Scrn Detected (NotDetected)
--- NOTE | 2019-02-28 15:51 | ED ---
Psych HPI - General Chief Complaint: Psychiatric Symptoms Stated Complaint: EPS Time Seen by Provider: 02/28/19 14:03 Source: patient, RN notes reviewed Mode of arrival: ambulatory Limitations: no limitations - History of Present Illness Initial Comments: This a 33-year-old female presents emergency from for psychiatric evaluation. Patient states she is depressed, suicidal. Patient states that she's been having worsening symptoms over the last couple weeks. Patient does state that she took some Adderall and Xanax off the streets she felt the help her symptoms. She doesn't history of suicide attempt. No physical complaints. Patient denies being on any antidepressants at this time does not see a current psychiatric provider - Related Data Home Medications Medication Instructions Recorded Confirmed No Known Home Medications 10/21/18 10/21/18 Allergies Allergy/AdvReac Type Severity Reaction Status Date / Time haloperidol [From Haldol] Allergy Swelling Verified 02/28/19 14:01 morphine AdvReac Nausea & Verified 10/21/18 16:38 Vomiting Review of Systems ROS Statement: Those systems with pertinent positive or pertinent negative responses have been documented in the HPI. ROS Other: All systems not noted in ROS Statement are negative. Past Medical History Additional Past Medical History / Comment(s): "blood infection" from toothache that stated went ot heart, bradycardia History of Any Multi-Drug Resistant Organisms: None Reported Past Surgical History: Section Past Anesthesia/Blood Transfusion Reactions: No Reported Reaction Past Psychological History: ADD/ADHD, Anxiety, Bipolar, Depression, Schizophrenia Smoking Status: Current every day smoker Past Alcohol Use History: Occasional Past Drug Use History: Marijuana - Past Family History Mother Family Medical History: Cancer Additional Family Medical History / Comment(s): stents placed in leg, throat cancer General Exam Limitations: no limitations General appearance: alert, in no apparent distress Head exam: Present: atraumatic, normocephalic, normal inspection Eye exam: Present: normal appearance, PERRL, EOMI. Absent: scleral icterus, conjunctival injection, periorbital swelling ENT exam: Present: normal exam, mucous membranes moist Neck exam: Present: normal inspection. Absent: tenderness, meningismus, lymphadenopathy Respiratory exam: Present: normal lung sounds bilaterally. Absent: respiratory distress, wheezes, rales, rhonchi, stridor Cardiovascular Exam: Present: regular rate, normal rhythm, normal heart sounds. Absent: systolic murmur, diastolic murmur, rubs, gallop, clicks GI/Abdominal exam: Present: soft, normal bowel sounds. Absent: distended, tenderness, guarding, rebound, rigid Neurological exam: Present: alert, oriented X3 Psychiatric exam: Present: depressed, flat affect Skin exam: Present: warm, dry, intact, normal color. Absent: rash Course Vital Signs 02/28/19 13:57 Temperature 97.8 F Pulse Rate 61 Respiratory 19 Rate Blood Pressure 133/96 O2 Sat by Pulse 99 Oximetry Medical Decision Making - Medical Decision Making Patient was evaluated by mobile crisis unit in the emergency department along with EPS. They have a safety plan in place they are to visit the patient 8:00 tonight patient is staying with family members signs safety plan contract. She has an intake appointment tomorrow morning and family agrees that she'll be safe the night. They recommend patient to be discharged. - Lab Data Lab Results 02/28/19 02/28/19 Range/Units 14:40 14:40 Urine HCG, Qual Not Detected (Not Detectd) Urine Opiates Screen Not Detected (NotDetected) Ur Oxycodone Screen Not Detected (NotDetected) Urine Methadone Screen Not Detected (NotDetected) Ur Propoxyphene Screen Not Detected (NotDetected) Ur Barbiturates Screen Not Detected (NotDetected) U Tricyclic Antidepress Not Detected (NotDetected) Ur Phencyclidine Scrn Not Detected (NotDetected) Ur Amphetamines Screen Not Detected (NotDetected) U Methamphetamines Scrn Not Detected (NotDetected) U Benzodiazepines Scrn Detected H (NotDetected) Urine Cocaine Screen Not Detected (NotDetected) U Marijuana (THC) Screen Detected H (NotDetected) Disposition Clinical Impression: Depression Disposition: HOME SELF-CARE Condition: Stable Instructions (If sedation given, give patient instructions): Depression (ED) Additional Instructions: Please return to the Emergency Department if symptoms worsen or any other concerns. Please follow-up your scheduled appointment with [facility]. Is patient prescribed a controlled substance at d/c from ED?: No Referrals: Hermelindo Arechiga MD [Primary Care Provider] - 1-2 days Time of Disposition: 16:55
[2019-02-28 17:24] VITALS: BP 129/76; PULSE 68; RESP 16
== END 2019-02-28 17:20 | disposition home or self-care (01) ==
LOC: EC 13:50
DX: F31.30 Bipolar disorder, current episode depressed, mild or moderate severity, unspecified (principal); R45.851 Suicidal ideations; F17.200 Nicotine dependence, unspecified, uncomplicated; Z88.5 Allergy status to narcotic agent; Z88.8 Allergy status to other drugs, medicaments and biological substances
CPT/HCPCS: 80306; 81025; 82075; 99285

== ENCOUNTER 2019-04-28 13:46 | Emergency (ER) | payer OTHER ==
[2019-04-28 14:34] LABS: Appearance,Urine Cloudy (Clear); Bilirubin,Urine Negative (Negative); Blood,Urine Negative (Negative); Color,Urine Yellow; Glucose,Urine (UA) Negative (Negative); Ketones,Urine Negative (Negative); Leukocyte Esterase,Urine Moderate (Negative); Mucus,Urine Rare /hpf; Nitrite,Urine Negative (Negative); PH, Urine 7.5 (5.0-8.0); Protein,Urine Trace (Negative); RBC,Urine 1 /hpf (0-5); Specific Gravity,Urine 1.027 (1.001-1.035); Squamous Epithelial Cell,Urine 10 /hpf (0-4); WBC,Urine 2 /hpf (0-5)
--- NOTE | 2019-04-28 14:53 | ED ---
General Adult HPI - General Chief complaint: Abdominal Pain Stated complaint: abd & back pain Time Seen by Provider: 04/28/19 13:55 Source: patient, RN notes reviewed, old records reviewed Mode of arrival: ambulatory Limitations: no limitations - History of Present Illness Initial comments: This is a 33-year-old female presents emergency department stating that she has had chronic back pain. Patient states lately every time she has her menstrual cycle she begins to have pain afterwards done in both sides of her abdomen that radiates around to her lower abdomen and into her back. Patient states she also has abdominal pain when she urinates or has a bowel movement. Patient states she's been trying to be worked up by her doctor but they have not gotten very far. Patient denies any vomiting or diarrhea patient denies any abnormal vaginal bleeding patient states she cannot be because she is having sex with her significant other who cannot have children. Patient denies any fever chills. Patient denies any upper abdominal pain. Patient denies any lightheadedness or dizziness. - Related Data Home Medications Medication Instructions Recorded Confirmed No Known Home Medications 10/21/18 10/21/18 Allergies Allergy/AdvReac Type Severity Reaction Status Date / Time haloperidol [From Haldol] Allergy Swelling Verified 04/28/19 13:53 morphine AdvReac Nausea & Verified 04/28/19 13:53 Vomiting Review of Systems ROS Statement: Those systems with pertinent positive or pertinent negative responses have been documented in the HPI. ROS Other: All systems not noted in ROS Statement are negative. Past Medical History Additional Past Medical History / Comment(s): "blood infection" from toothache that stated went ot heart, bradycardia History of Any Multi-Drug Resistant Organisms: None Reported Past Surgical History: Section Past Anesthesia/Blood Transfusion Reactions: No Reported Reaction Past Psychological History: ADD/ADHD, Anxiety, Bipolar, Depression, Schizophrenia Smoking Status: Current every day smoker Past Alcohol Use History: Occasional Past Drug Use History: Marijuana - Past Family History Mother Family Medical History: Cancer Additional Family Medical History / Comment(s): stents placed in leg, throat cancer General Exam - General Exam Comments Initial Comments: GENERAL: Patient is well-developed and well-nourished. Patient is nontoxic and well- hydrated and is in mild distress. ENT: Neck is soft and supple. No significant lymphadenopathy is noted. Oropharynx is clear. Moist mucous membranes. Neck has full range of motion without eliciting any pain. EYES: The sclera were anicteric and conjunctiva were pink and moist. Extraocular movements were intact and pupils were equal round and reactive to light. Eyelids were unremarkable. PULMONARY: Unlabored respirations. Good breath sounds bilaterally. No audible rales rhonchi or wheezing was noted. CARDIOVASCULAR: There is a regular rate and rhythm without any murmurs gallops or rubs. ABDOMEN: Minimal left and right lower quadrant abdominal pain no rebound SKIN: Skin is clear with no lesions or rashes and otherwise unremarkable. NEUROLOGIC: Patient is alert and oriented x3. Cranial nerves II through XII are grossly intact. Motor and sensory are also intact. Normal speech, volume and content. Symmetrical smile. MUSCULOSKELETAL: Normal extremities with adequate strength and full range of motion. LYMPHATICS: No significant lymphadenopathy is noted PSYCHIATRIC: Normal psychiatric evaluation. Limitations: no limitations Course Vital Signs 04/28/19 13:51 Temperature 97.7 F Pulse Rate 54 L Respiratory 20 Rate Blood Pressure 128/93 O2 Sat by Pulse 99 Oximetry Medical Decision Making - Medical Decision Making Ultrasound of pelvis showed no acute abnormality. - Lab Data Result diagrams: 04/28/19 15:05 04/28/19 15:05 Lab Results 04/28/19 04/28/19 04/28/19 Range/Units 14:22 15:05 15:05 WBC 11.7 H (3.8-10.6) k/uL RBC 4.80 (3.80-5.40) m/uL Hgb 13.7 (11.4-16.0) gm/dL Hct 43.4 (34.0-46.0) % MCV 90.4 (80.0-100.0) fL MCH 28.6 (25.0-35.0) pg MCHC 31.6 (31.0-37.0) g/dL RDW 13.3 (11.5-15.5) % Plt Count 255 (150-450) k/uL Neutrophils % 67 % Lymphocytes % 23 % Monocytes % 4 % Eosinophils % 5 % Basophils % 1 % Neutrophils # 7.8 H (1.3-7.7) k/uL Lymphocytes # 2.7 (1.0-4.8) k/uL Monocytes # 0.4 (0-1.0) k/uL Eosinophils # 0.6 (0-0.7) k/uL Basophils # 0.1 (0-0.2) k/uL Sodium 139 (137-145) mmol/L Potassium 3.9 (3.5-5.1) mmol/L Chloride 106 (98-107) mmol/L Carbon Dioxide 23 (22-30) mmol/L Anion Gap 10 mmol/L BUN 10 (7-17) mg/dL Creatinine 0.71 (0.52-1.04) mg/dL Est GFR (CKD-EPI)AfAm >90 (>60 ml/min/1.73 sqM) Est GFR (CKD-EPI)NonAf >90 (>60 ml/min/1.73 sqM) Glucose 103 H (74-99) mg/dL Calcium 9.1 (8.4-10.2) mg/dL Total Bilirubin 0.4 (0.2-1.3) mg/dL AST 21 (14-36) U/L ALT 12 (4-34) U/L Alkaline Phosphatase 50 (38-126) U/L Total Protein 7.1 (6.3-8.2) g/dL Albumin 4.5 (3.5-5.0) g/dL Urine Color Yellow Urine Appearance Cloudy H (Clear) Urine pH 7.5 (5.0-8.0) Ur Specific Cisco 1.027 (1.001-1.035) Urine Protein Trace H (Negative) Urine Glucose (UA) Negative (Negative) Urine Ketones Negative (Negative) Urine Blood Negative (Negative) Urine Nitrite Negative (Negative) Urine Bilirubin Negative (Negative) Urine Urobilinogen 3.0 (<2.0) mg/dL Ur Leukocyte Esterase Moderate H (Negative) Urine RBC 1 (0-5) /hpf Urine WBC 2 (0-5) /hpf Ur Squamous Epith Cells 10 H (0-4) /hpf Urine Mucus Rare H (None) /hpf Disposition Clinical Impression: Abdominal pain Disposition: HOME SELF-CARE Condition: Good Instructions (If sedation given, give patient instructions): Abdominal Pain (ED) Is patient prescribed a controlled substance at d/c from ED?: No Referrals: Hermelindo Arechiga MD [Primary Care Provider] - 1-2 days Time of Disposition: 16:34
[2019-04-28 15:13] LABS: Basophils # (A) 0.1 k/uL (0-0.2); Basophils % (A) 1 %; Eosinophils # (A) 0.6 k/uL (0-0.7); Eosinophils % (A) 5 %; HCT 43.4 % (34.0-46.0); HGB 13.7 gm/dL (11.4-16.0); Lymphocytes # (A) 2.7 k/uL (1.0-4.8); Lymphocytes % (A) 23 %; MCH 28.6 pg (25.0-35.0); MCHC 31.6 g/dL (31.0-37.0); MCV 90.4 fL (80.0-100.0); Mean Platelet Volume 7.7; Monocytes # (A) 0.4 k/uL (0-1.0); Monocytes % (A) 4 %; Neutrophils # (A) 7.8 k/uL (1.3-7.7); Neutrophils % (A) 67 %; Platelet Count 255 k/uL (150-450); RDW 13.3 % (11.5-15.5); WBC 11.7 k/uL (3.8-10.6)
[2019-04-28 15:24] LABS: ALT 12 U/L (4-34); AST 21 U/L (14-36); African American GFR (CKD) >90 (>60 ml/min/1.73 sqM); Albumin 4.5 g/dL (3.5-5.0); Alkaline Phosphatase 50 U/L (38-126); Anion Gap 10 mmol/L; Blood Urea Nitrogen 10 mg/dL (7-17); Calcium 9.1 mg/dL (8.4-10.2); Carbon Dioxide 23 mmol/L (22-30); Chloride 106 mmol/L (98-107); Glucose 103 mg/dL (74-99); Non-African American GFR(CKD) >90 (>60 ml/min/1.73 sqM); Potassium 3.9 mmol/L (3.5-5.1); Sodium 139 mmol/L (137-145); Total Bilirubin 0.4 mg/dL (0.2-1.3); Total Protein 7.1 g/dL (6.3-8.2)
--- NOTE | 2019-04-28 15:37 | US ---
EXAMINATION TYPE: US transvaginal DATE OF EXAM: 04/28/2019 COMPARISON: NONE CLINICAL HISTORY: Bilateral pelvic pain . Pt states pelvic pain x few weeks TECHNIQUE: Transvaginal (TV). Transvaginal sonographic images of the pelvis were acquired. Date of LMP: 04/11/2019 EXAM MEASUREMENTS: Uterus: 8.5 x 4.3 x 4.9 cm Endometrial Stripe: 0.8 cm Right Ovary: 3.1 x 2.2 x 3.1 cm Left Ovary: 2.5 x 1.9 x 2.0 cm 1. Uterus: Anteverted Heterogeneous 2. Endometrium: wnl 3. Right Ovary: wnl 4. Left Ovary: wnl Spectral, color and waveform doppler imaging shows arterial and venous flow within the left and rig ht ovary. 5. Bilateral Adnexa: wnl 6. Posterior cul-de-sac: wnl IMPRESSION: No significant abnormalities evident
[2019-04-28 16:59] VITALS: BP 127/76; PULSE 55; RESP 18; TEMP 98
== END 2019-04-28 17:02 | disposition home or self-care (01) ==
LOC: EC 13:46
DX: R10.31 Right lower quadrant pain (principal); F17.200 Nicotine dependence, unspecified, uncomplicated; Z88.5 Allergy status to narcotic agent; Z88.8 Allergy status to other drugs, medicaments and biological substances
CPT/HCPCS: 36415; 76830; 80053; 81001; 85025; 93975; 99284

== ENCOUNTER → 2020-03-07 | Outpatient (CLI) | payer OTHER ==
--- NOTE | 2020-03-07 14:38 | CT ---
EXAMINATION TYPE: CT soft tissue neck w con DATE OF EXAM: 03/07/2020 HISTORY: swelling Rt side, pulsatile mass. COMPARISON: NONE CT DLP: 345.1 mGycm. Automated Exposure Control for Dose Reduction was Utilized. TECHNIQUE: CT scan of the neck is performed with IV Contrast, patient injected with 100 mL of Isovue 300, axial images are obtained, coronal and sagittal reformatted images are reviewed. FINDINGS: Airway: Mild to borderline moderate underlying emphysematous change in the visualized upper lungs. Kaspre ggestion of some prominent superior bilateral hilar lymph nodes on the most inferior images. Parotid/submandibular glands: No gross abnormality seen. Carotid/Vascular Structures: No significant abnormality. Osseous Structures: Moderate to severe disc space narrowing C7-T1 level . Slight scoliotic curvature on coronal images. Other: A few prominent but scattered subcentimeter lymph nodes throughout the neck bilaterally. Metallic BB placed the level of palpable abnormality lateral right mid cervical level axial image 50 at level of hyoid bone. No suspicious cystic mass or abnormal fluid collection is noted at this level . When comparing with opposite left side there is ovoid fat soft tissue prominence measuring 2.7 x 1. 7 cm axial image 48 without definitive lesion on coronal and sagittal images causing a tiny vessel to be displaced superiorly. Possible small subcutaneous lipoma. No significant soft tissue nodularity i dentified at this level. IMPRESSION: Probable 2.7 cm benign subcutaneous lipoma corresponding to palpable abnormality right la teral neck mid cervical level.
== END | disposition home or self-care (01) ==
LOC: RADCTMAIN 13:13
PROVIDERS: ATTEND Family Medicine
DX: D17.0 Benign lipomatous neoplasm of skin and subcutaneous tissue of head, face and neck (principal)
CPT/HCPCS: 70491; Q9967

== ENCOUNTER 2020-04-11 07:58 | Day surgery (SDC) | payer OTHER ==
[2020-04-06 11:15] VITALS: BMI 29.0
[~2020-04-11 07:58] MED LIST: ACETAMINOPHEN TAB 500 MG TAB PO PRN; DEXAMETHASONE SOD PHOSPHATE 4 MG/ML 1 ML VIAL IV ONE; HEPARIN SODIUM,PORCINE 5,000 UNIT/ML 1 ML VIAL SQ PRN; LACTATED RINGERS 1,000 ML IV SCH; LIDOCAINE 1% (10MG/ML) FOR IV START INTRADERMA PRN; ONDANSETRON 4 MG/2 ML VIAL IVP ONE; Pre Op ABX Message 1 EACH MISC MISCELLANE ONE
[2020-04-11 08:26] VITALS: RESP 16
--- NOTE | 2020-04-11 09:50 | P.GSHP ---
History of Present Illness H&P Date: 04/11/20 Chief Complaint: Right neck lipoma This a 34-year-old female who presents today for excision of a right neck lipoma. Patient will be 5 cm lipoma at the right lateral aspect of her neck. Past Medical History Past Medical History: COPD Additional Past Medical History / Comment(s): "blood infection" from toothache that stated went ot heart, bradycardia History of Any Multi-Drug Resistant Organisms: None Reported Past Surgical History: Section Past Anesthesia/Blood Transfusion Reactions: No Reported Reaction Smoking Status: Former smoker - Past Family History Mother Family Medical History: Cancer Additional Family Medical History / Comment(s): stents placed in leg, throat cancer Medications and Allergies Home Medications Medication Instructions Recorded Confirmed Type Acetaminophen [Tylenol Extra 500 - 1,000 mg PO Q6HR PRN 04/06/20 04/06/20 History Strength] Albuterol Sulfate [Proair 1 puff INHALATION Q6H PRN 04/06/20 04/06/20 History Digihaler] Nicotine 21Mg/24Hr Patch [Habitrol] 1 each TRANSDERM DAILY 04/06/20 04/06/20 History Allergies Allergy/AdvReac Type Severity Reaction Status Date / Time haloperidol [From Haldol] Allergy Swelling Verified 04/11/20 08:11 morphine AdvReac Nausea & Verified 04/11/20 08:11 Vomiting Surgical - Exam Vital Signs Temp Pulse Resp BP Pulse Ox 97.6 F 55 L 16 115/68 96 04/11/20 08:21 04/11/20 08:21 04/11/20 08:21 04/11/20 08:21 04/11/20 08:21 - General well developed, well nourished, no distress - Eyes PERRL - ENT normal pinna - Neck no masses - Respiratory normal expansion - Cardiovascular Rhythm: regular - Abdomen Abdomen: soft, non tender - Integumentary 5 cm lipoma located at the base of the right neck Assessment and Plan Assessment: Neck lipoma. We'll perform excision.
[2020-04-11] MEDS ORDERED: fentaNYL (PF) 50 MCG/ML 2 ML AMP ONE (10:04)
[2020-04-11] MEDS ORDERED: SUCCINYLCHOLINE CHLORIDE 100 MG/5 ML SYR IV ONE (10:04)
[2020-04-11] MEDS ORDERED: LIDOCAINE 1% INJ 10MG/ML (20 ML MDV) ONE (10:04)
[2020-04-11] MEDS ORDERED: MIDAZOLAM 2 MG/2 ML VIAL ONE (10:04)
[2020-04-11] MEDS ORDERED: PROPOFOL 10 MG/ML 20 ML VIAL IV ONE (10:04)
[2020-04-11] MEDS ORDERED: LIDOCAINE 1%-EPI 1:100,000 20 ML VIAL SQ ONE ×2 (10:24→10:30)
--- NOTE | 2020-04-11 10:49 | P.OP ---
Date of Procedure: 04/11/20 Preoperative Diagnosis: Right neck lipoma Postoperative Diagnosis: Right Neck lipoma Procedure(s) Performed: Excision of right neck lipoma Anesthesia: MAGDALENA Surgeon: Cody Nguyen Estimated Blood Loss (ml): 5 Pathology: other (Neck lipoma) Condition: stable Disposition: PACU Description of Procedure: The patient's placed on the operating table in supine position. She received general endotracheal tube and see. Her left neck was prepped and draped usual sterile fashion. Patient a 5 cm lipoma located the base the right neck. A transverse skin incision was made over the mass and then using subcutaneous skin was then closed interrupted 3-0 Monocryl suture. Dermabond was applied. Patient top she will was sent to recovery in stable condition.
[2020-04-11 10:51] VITALS: TEMP 97.2
[2020-04-11 11:54] VITALS: BP 113/53; PULSE 66
== END 2020-04-11 12:05 | disposition home or self-care (01) ==
LOC: OR 07:58
PROVIDERS: ATTEND Surgery
DX: D17.0 Benign lipomatous neoplasm of skin and subcutaneous tissue of head, face and neck (principal); J44.9 Chronic obstructive pulmonary disease, unspecified; Z86.19 Personal history of other infectious and parasitic diseases; Z98.890 Other specified postprocedural states; Z87.891 Personal history of nicotine dependence; Z79.899 Other long term (current) drug therapy; Z88.8 Allergy status to other drugs, medicaments and biological substances; Z88.5 Allergy status to narcotic agent; Z80.8 Family history of malignant neoplasm of other organs or systems
CPT/HCPCS: 81025; 88304; 21552; J2250; J1644; J1100; J2405; J2001; J3010; J0330; J2704

== ENCOUNTER 2020-10-31 00:10 | Emergency (ER) | payer OTHER ==
[2020-10-31 00:16] VITALS: TEMP 98.2
[2020-10-31] MEDS ORDERED: IPRATROPIUM-ALBUTEROL 3 ML NEB INHALATION STA (00:23)
[2020-10-31] MEDS ORDERED: dexAMETHasone 2 MG TAB PO STA (00:23)
[2020-10-31] MEDS ORDERED: ALBUTEROL NEBULIZED 2.5 MG/3 ML INHALATION STA (00:25)
[2020-10-31] MEDS ORDERED: IPRATROPIUM 0.5 MG/2.5 ML NEBU INHALATION STA (00:25)
[2020-10-31] MEDS ORDERED: methylPREDNISolone SOD SUCCI 125 MG/2 ML VIAL IV STA (00:25)
[2020-10-31] MEDS ORDERED: SODIUM CHLORIDE 0.9% 1,000 ML IV STA ×2 (00:25)
--- NOTE | 2020-10-31 00:27 | ED ---
SOB HPI - General Chief Complaint: Shortness of Breath Stated Complaint: ARPIT Time Seen by Provider: 10/31/20 00:23 Source: patient, family Mode of arrival: wheelchair Limitations: no limitations - Related Data Home Medications Medication Instructions Recorded Confirmed Acetaminophen [Tylenol Extra 500 - 1,000 mg PO Q6HR PRN 04/06/20 04/06/20 Strength] Albuterol Sulfate [Proair 1 puff INHALATION Q6H PRN 04/06/20 04/06/20 Digihaler] Nicotine 21Mg/24Hr Patch [Habitrol] 1 each TRANSDERM DAILY 04/06/20 04/06/20 Previous Rx's Medication Instructions Recorded Acetaminophen Tab [Tylenol] 650 mg PO Q6H #30 tab 04/11/20 Ibuprofen [Motrin] 600 mg PO Q6HR PRN #40 tab 04/11/20 Albuterol Nebulized [Ventolin 2.5 mg INHALATION Q4H PRN #25 nebu 10/31/20 Nebulized] Albuterol Sulfate [Proair Hfa] 1 - 2 puff INHALATION Q4H PRN #1 10/31/20 inhaler Azithromycin [Zithromax Z-pack (6 0 mg PO DIRECTED #1 pack 10/31/20 tabs)] predniSONE 50 mg PO DAILY #5 tab 10/31/20 Allergies Allergy/AdvReac Type Severity Reaction Status Date / Time haloperidol [From Haldol] Allergy Swelling Verified 10/31/20 00:16 morphine AdvReac Nausea & Verified 10/31/20 00:16 Vomiting Review of Systems ROS Statement: Those systems with pertinent positive or pertinent negative responses have been documented in the HPI. ROS Other: All systems not noted in ROS Statement are negative. Past Medical History Past Medical History: Asthma, COPD Additional Past Medical History / Comment(s): "blood infection" from toothache that stated went ot heart, bradycardia History of Any Multi-Drug Resistant Organisms: None Reported Past Surgical History: Section Past Anesthesia/Blood Transfusion Reactions: No Reported Reaction Past Psychological History: ADD/ADHD, Anxiety, Bipolar, Depression, Schizophrenia Smoking Status: Current every day smoker Past Alcohol Use History: None Reported Past Drug Use History: Marijuana - Past Family History Mother Family Medical History: Cancer Additional Family Medical History / Comment(s): stents placed in leg, throat cancer General Exam Limitations: no limitations Course Vital Signs 10/31/20 10/31/20 10/31/20 00:13 01:25 01:41 Temperature 98.2 F Pulse Rate 54 L 54 L 63 Respiratory 20 18 18 Rate Blood Pressure 137/74 O2 Sat by Pulse 100 Oximetry Medical Decision Making - Lab Data Result diagrams: 10/31/20 00:46 10/31/20 00:46 Lab Results 10/31/20 10/31/20 10/31/20 Range/Units 00:46 00:46 00:46 WBC 15.5 H (3.8-10.6) k/uL RBC 4.75 (3.80-5.40) m/uL Hgb 13.8 (11.4-16.0) gm/dL Hct 42.0 (34.0-46.0) % MCV 88.5 (80.0-100.0) fL MCH 29.1 (25.0-35.0) pg MCHC 32.9 (31.0-37.0) g/dL RDW 14.5 (11.5-15.5) % Plt Count 331 (150-450) k/uL MPV 7.3 Neutrophils % 61 % Lymphocytes % 29 % Monocytes % 3 % Eosinophils % 5 % Basophils % 1 % Neutrophils # 9.4 H (1.3-7.7) k/uL Lymphocytes # 4.5 (1.0-4.8) k/uL Monocytes # 0.5 (0-1.0) k/uL Eosinophils # 0.8 H (0-0.7) k/uL Basophils # 0.1 (0-0.2) k/uL PT 10.3 (9.0-12.0) sec INR 1.0 (<1.2) APTT 24.5 (22.0-30.0) sec Sodium 137 (137-145) mmol/L Potassium 4.0 (3.5-5.1) mmol/L Chloride 105 (98-107) mmol/L Carbon Dioxide 23 (22-30) mmol/L Anion Gap 9 mmol/L BUN 13 (7-17) mg/dL Creatinine 0.64 (0.52-1.04) mg/dL Est GFR (CKD-EPI)AfAm >90 (>60 ml/min/1.73 sqM) Est GFR (CKD-EPI)NonAf >90 (>60 ml/min/1.73 sqM) Glucose 95 (74-99) mg/dL Calcium 9.6 (8.4-10.2) mg/dL Magnesium 1.9 (1.6-2.3) mg/dL Total Bilirubin 0.4 (0.2-1.3) mg/dL AST 34 (14-36) U/L ALT 13 (4-34) U/L Alkaline Phosphatase 68 (38-126) U/L Creatine Kinase 147 H (30-135) U/L Troponin I (0.000-0.034) ng/mL NT-Pro-B Natriuret Pep pg/mL Total Protein 7.4 (6.3-8.2) g/dL Albumin 4.7 (3.5-5.0) g/dL 10/31/20 10/31/20 Range/Units 00:46 00:46 WBC (3.8-10.6) k/uL RBC (3.80-5.40) m/uL Hgb (11.4-16.0) gm/dL Hct (34.0-46.0) % MCV (80.0-100.0) fL MCH (25.0-35.0) pg MCHC (31.0-37.0) g/dL RDW (11.5-15.5) % Plt Count (150-450) k/uL MPV Neutrophils % % Lymphocytes % % Monocytes % % Eosinophils % % Basophils % % Neutrophils # (1.3-7.7) k/uL Lymphocytes # (1.0-4.8) k/uL Monocytes # (0-1.0) k/uL Eosinophils # (0-0.7) k/uL Basophils # (0-0.2) k/uL PT (9.0-12.0) sec INR (<1.2) APTT (22.0-30.0) sec Sodium (137-145) mmol/L Potassium (3.5-5.1) mmol/L Chloride (98-107) mmol/L Carbon Dioxide (22-30) mmol/L Anion Gap mmol/L BUN (7-17) mg/dL Creatinine (0.52-1.04) mg/dL Est GFR (CKD-EPI)AfAm (>60 ml/min/1.73 sqM) Est GFR (CKD-EPI)NonAf (>60 ml/min/1.73 sqM) Glucose (74-99) mg/dL Calcium (8.4-10.2) mg/dL Magnesium (1.6-2.3) mg/dL Total Bilirubin (0.2-1.3) mg/dL AST (14-36) U/L ALT (4-34) U/L Alkaline Phosphatase (38-126) U/L Creatine Kinase (30-135) U/L Troponin I <0.012 (0.000-0.034) ng/mL NT-Pro-B Natriuret Pep 25 pg/mL Total Protein (6.3-8.2) g/dL Albumin (3.5-5.0) g/dL - EKG Data -: EKG Interpreted by Me (EKG shows sinus bradycardia 48 HI 160 QRS 90 QTC 380) Disposition Clinical Impression: Acute bronchitis Disposition: HOME SELF-CARE Condition: Good Instructions (If sedation given, give patient instructions): Asthma (ED), Acute Bronchitis (ED) Prescriptions: predniSONE 50 mg PO DAILY #5 tab Albuterol Sulfate [Proair Hfa] 1 - 2 puff INHALATION Q4H PRN #1 inhaler PRN Reason: Shortness Of Breath Albuterol Nebulized [Ventolin Nebulized] 2.5 mg INHALATION Q4H PRN #25 nebu PRN Reason: Shortness Of Breath Azithromycin [Zithromax Z-pack (6 tabs)] 0 mg PO DIRECTED #1 pack Referrals: Hermelindo Arechiga MD [Primary Care Provider] - 1-2 days
[2020-10-31 00:54] LABS: Basophils # (A) 0.1 k/uL (0-0.2); Basophils % (A) 1 %; Eosinophils # (A) 0.8 k/uL (0-0.7); Eosinophils % (A) 5 %; HGB 13.8 gm/dL (11.4-16.0); Lymphocytes # (A) 4.5 k/uL (1.0-4.8); Lymphocytes % (A) 29 %; MCH 29.1 pg (25.0-35.0); MCHC 32.9 g/dL (31.0-37.0); MCV 88.5 fL (80.0-100.0); Mean Platelet Volume 7.3; Monocytes # (A) 0.5 k/uL (0-1.0); Monocytes % (A) 3 %; Neutrophils # (A) 9.4 k/uL (1.3-7.7); Neutrophils % (A) 61 %; Platelet Count 331 k/uL (150-450); RBC 4.75 m/uL (3.80-5.40); RDW 14.5 % (11.5-15.5); WBC 15.5 k/uL (3.8-10.6)
[2020-10-31 01:07] LABS: Partial Thromboplastin Time 24.5 sec (22.0-30.0); Prothrombin Time 10.3 sec (9.0-12.0)
[2020-10-31 01:12] LABS: ALT 13 U/L (4-34); AST 34 U/L (14-36); African American GFR (CKD) >90 (>60 ml/min/1.73 sqM); Albumin 4.7 g/dL (3.5-5.0); Alkaline Phosphatase 68 U/L (38-126); Anion Gap 9 mmol/L; Blood Urea Nitrogen 13 mg/dL (7-17); Calcium 9.6 mg/dL (8.4-10.2); Carbon Dioxide 23 mmol/L (22-30); Chloride 105 mmol/L (98-107); Creatine Kinase 147 U/L (30-135); Glucose 95 mg/dL (74-99); Magnesium 1.9 mg/dL (1.6-2.3); Non-African American GFR(CKD) >90 (>60 ml/min/1.73 sqM); Sodium 137 mmol/L (137-145); Total Bilirubin 0.4 mg/dL (0.2-1.3); Total Protein 7.4 g/dL (6.3-8.2)
--- NOTE | 2020-10-31 02:44 | CT ---
EXAMINATION TYPE: CT angio chest DATE OF EXAM: 10/31/2020 COMPARISON: None HISTORY: Chest pain CT DLP: 270 mGycm Automated exposure control for dose reduction was used. CONTRAST: Performed with IV Contrast, patient injected with 50 mL of Isovue 370. There are 3-D post processed images. There is mild pulmonary emphysema. There is no pneumothorax. There is no evidence of a pulmonary mass . There is no pleural effusion. Heart size is normal. There is no pericardial effusion. There is no mediastinal adenopathy. There are no hilar masses. Thoracic spine is intact. There is no compression fracture. Sternum is intact. Thoracic spine is intact. There is no mediastinal adenopathy. There are no hilar masses. There is normal contrast opacification of the pulmonary arteries. There are no filling defects. Thoracic aorta is intact. There is no aneur ysm or dissection. IMPRESSION: No evidence of pulmonary embolism. Pulmonary emphysema. No suspicious pulmonary mass.
[2020-10-31] MEDS ORDERED: AZITHROMYCIN 500 MG TAB PO STA (03:03)
[2020-10-31 04:07] VITALS: BP 133/78; PULSE 78; RESP 17
== END 2020-10-31 03:42 | disposition home or self-care (01) ==
LOC: EC 00:10
DX: J20.9 Acute bronchitis, unspecified (principal); J44.9 Chronic obstructive pulmonary disease, unspecified; F31.9 Bipolar disorder, unspecified; F41.9 Anxiety disorder, unspecified; F90.9 Attention-deficit hyperactivity disorder, unspecified type; F17.200 Nicotine dependence, unspecified, uncomplicated; F12.90 Cannabis use, unspecified, uncomplicated; Z79.51 Long term (current) use of inhaled steroids
CPT/HCPCS: 36415; 71275; 80053; 82550; 83735; 83880; 84484; 85025; 85610; 85730; 93005; 94640; 96374; 99285